=== PATIENT | female | born 1990 | race Caucasian/White ===

== ENCOUNTER 2021-06-16 01:18 | Inpatient (IN) | payer BC ==
[~2021-06-16] VITALS: Ht 167.6 cm; Wt 98.2 kg
[2021-06-16] VITALS (49 sets, daily range): BP systolic 101–167; BP diastolic 58–98; PULSE 63–153; TEMP 97.7–98.4
[~2021-06-16 01:18] MED LIST: BIRTH CONTROL PO; CELEXA10 MG PO; NIFEDIPINE OINTMENT TOP; ZOCOR 20MG20 MG PO
--- NOTE | 2021-06-16 01:20 | NUR ---
0120 - PATIENT AMBULATORY TO [facility] ACCOMPANIED BY SPOUSE. PATIENT ORIENTED TO ROOM. PATIENT CHANGES INTO GOWN. 0130 - PLAN OF CARE DISCUSSED. PATIENT REPORTS LEAKING OF FLUID AND REGULAR CONTRACTIONS EVERY 3-4 MINUTES. PATIENT REPORTS GOOD MOVEMENT AND SMALL AMOUNT OF BLOODY SHOW. 0140 - SVE PERFORMED BY BINDU HUMPHRIES. /-2. SMALL AMOUNT OF LEAKING FLUID NOTED UPON EXAM. NO BLOODY SHOW. AMNIOTRACE NEGATIVE. PATIENT IS BREATHING THROUGH CONTRACTIONS. PLAN OF CARE FOR REPEAT SVE AND AMNIOTRACE IN 1 HOUR DISCUSSED WITH PATIENT. PATIENT IS AGREEABLE TO PLAN. MONITORING CONTINUES. CARE ONGOING.
[2021-06-16] MEDS ORDERED: PRENATAL TABLET PO (01:46)
[2021-06-16 03:34] LABS: BASO % 0.3 % (0.0-2.0); EOS % 0.3 % (0.0-4.0); GRAN # 9.7 K/mm3 (1.4-6.5); GRAN % 78.3 % (42.2-75.2); HEMATOCRIT 39.8 % (37.0-47.0); HEMOGLOBIN 13.8 g/dl (12.5-16.0); LYMPH # 1.6 K/mm3 (1.2-3.4); MEAN CELL VOLUME 81 fl (80.0-100.0); MEAN CORPUSCULAR HEMOGLOBIN 28 pg (27-31); MEAN CORPUSCULAR HGB CONC 35 g/dl (33.0-37.0); MEAN PLATELET VOLUME 11.7 fl (7.4-10.4); MONO # 0.9 K/mm3 (0.1-0.6); PLATELET COUNT 238 K/mm3 (130-400); RED BLOOD COUNT 4.89 M/mm3 (4.10-5.30); REDCELL DISTRIBUTION WIDTH-CV 14.3 % (11.5-14.5)
--- NOTE | 2021-06-16 04:05 | NUR ---
0405 - BI CHRISTENSEN AT BEDSIDE. 0405 - PATIENT POSITIONED SITTING AT EDGE OF BED FOR EPIDURAL PLACEMENT. 0413 - TEST DOSE GIVEN PER PLANIMETER OPERATOR. EFM TRACING POOR DUE TO MATERNAL POSITION. PATIENT REPOSITIONED AFTER PROCEDURE. EFM ADJUSTED. CARE ONGOING.
--- NOTE | 2021-06-16 05:45 | NUR ---
TOCO TRACING INDESCERNIBLE. TOCO ADJUSTED. CARE ONGOING.
--- NOTE | 2021-06-16 09:57 | NUR ---
0930 SVE UNCHANGED WITH SLIGHT SWELLING NOTED TO CERVIX. DR MARTINS CALLED AND UPDATED. ORDERS TO START PITOCIN AT THIS TIME.
--- NOTE | 2021-06-16 11:14 | NUR ---
1100 SVE UNCHANGED AND REMAINS SLIGHTLY SWOLLEN. DR MARTINS CALLED AND UPDATED AND ORDERS TO GIVE BENEDRYL 25 MG PO NOW.
--- NOTE | 2021-06-16 14:28 | NUR ---
[address] MARTINS CALLED TO COME TO HOSPITAL FOR DELIVERY 1300 DR MARTINS AT BEDSIDE.
--- NOTE | 2021-06-16 14:30 | NUR ---
1315 PATEL OUT PATIENT WILL CONTINUE TO PUSH WITH EACH CONTRACTION
--- NOTE | 2021-06-16 14:50 | NUR ---
1343 BABY GIRL BORN VIA BY DR MARTINS. BABY TO MOMS CHEST SKIN TO SKIN. STRONG CRY NOTED. CORD CALMPED AND CUT BY DR MARTINS AFTER DELAYED.CALMPING. 1346 PLACENTA DELIVERED. AND PITOCIN STARTED AT 333/HR FUNDUS FIRM AND BLEEDING WNL. BABY REMAINS SKIN TO SKIN. REPAIR DONE BY DR MARTINS. SEE NOTES FOR QUESTIONS.
--- NOTE | 2021-06-16 19:05 | NUR ---
ASSISTED TO BATHROOM BY THIS NURSE. PATIENT TRANSFERRED TO WHEELCHAIR AND THEN TO TOILET. PATIENT TOLERATED ACTIVITY WITH NO REPORTS OF DIZZINESS OR LIGHTHEADEDNESS. PATIENT ASSISTED BACK TO BED. CALL LIGHT AND ESSENTIAL ITEMS WITHIN REACH. PATIENT INSTRUCTED TO CALL FOR ASSISTANCE OUT OF BED AT THIS TIME. PATIENT VERBALIZED UNDERSTANDING OF INSTRUCTIONS.
[2021-06-17 02:50] VITALS: BP 112/73; PULSE 94; TEMP 97.6
[2021-06-17 07:16] LABS: BASO % 0.2 % (0.0-2.0); EOS # 0.1 K/mm3 (0.0-0.7); EOS % 0.3 % (0.0-4.0); GRAN # 11.4 K/mm3 (1.4-6.5); GRAN % 79.4 % (42.2-75.2); LYMPH # 1.9 K/mm3 (1.2-3.4); LYMPH % 13.3 % (20.0-51.0); MEAN CELL VOLUME 83 fl (80.0-100.0); MEAN CORPUSCULAR HGB CONC 34 g/dl (33.0-37.0); MEAN PLATELET VOLUME 11.7 fl (7.4-10.4); MONO # 0.9 K/mm3 (0.1-0.6); PLATELET COUNT 189 K/mm3 (130-400); RED BLOOD COUNT 3.55 M/mm3 (4.10-5.30); REDCELL DISTRIBUTION WIDTH-CV 14.7 % (11.5-14.5)
[2021-06-17 07:24] LABS: HEMATOCRIT 29.5 % (37.0-47.0); HEMOGLOBIN 9.9 g/dl (12.5-16.0); MEAN CORPUSCULAR HEMOGLOBIN 28 pg (27-31)
[2021-06-17 07:50] VITALS: BP 128/55; PULSE 87; TEMP 97.7
[2021-06-17 12:43] VITALS: BP 99/66; TEMP 98.1
[2021-06-17 17:50] VITALS: BP 119/77; PULSE 89
[2021-06-17 20:30] VITALS: BP 124/72; PULSE 79; TEMP 98.2
[2021-06-18 08:35] VITALS: BP 124/83; PULSE 70; TEMP 98.7
[2021-06-18] MEDS ORDERED: IBU600 MG PO (08:35)
== END 2021-06-18 15:35 | disposition home or self-care (01) | DRG 807 ==
LOC: LDRO 01:18 → LDR 02:59 → OB 02:59
PROVIDERS: ADMIT Obstetrics & Gynecology
PROC: 10E0XZZ Delivery of Products of Conception, External Approach (ICD-10-PCS; principal; 2021-06-16)
PROC: 0KQM0ZZ Repair Perineum Muscle, Open Approach (ICD-10-PCS; 2021-06-16)
PROC: 0UQMXZZ Repair Vulva, External Approach (ICD-10-PCS; 2021-06-16)
DX: O99.344 Other mental disorders complicating childbirth (principal); Z37.0 Single live birth; F41.9 Anxiety disorder, unspecified; O70.1 Second degree perineal laceration during delivery; Z3A.40 40 weeks gestation of pregnancy; Z23 Encounter for immunization
CPT/HCPCS: J2590; J7120